=== PATIENT | female | born 1980 | race African-American/Black ===

== ENCOUNTER → 2017-10-13 | Day surgery (SDC) | payer OTHER ==
[~2017-10-13] MED LIST: GENTAMICIN SULFATE 80 MG/2 ML VIAL ONE; KETOROLAC TROMETHAMINE 30 MG/ML (IVP) VIAL IV PUSH ONE; LACTATED RINGER'S 1000 ML INJ 1,000 ML ONE; LIDOCAINE HCL 2% JELLY 5 ML SYRINGE ONE; MIDAZOLAM HCL 2 MG/2 ML VIAL ONE; MORPHINE SULFATE 2 MG/ML SYRINGE ONE; NS 100 ML (PAB BAG) 100 ML IV ONE; ONDANSETRON HCL 4 MG/2 ML VIAL IV PUSH ONE; PROPOFOL 200 MG/20 ML AMP IV ONE; SULF-154 PO; Z.0.NO CURRENT MEDS
--- NOTE | 2017-10-13 09:32 | TN ---
cc: Didier Sun MD DATE OF SURGERY: 10/13/2017 PREOPERATIVE DIAGNOSIS: Chronic cystitis (N30.20). POSTOPERATIVE DIAGNOSIS: Chronic cystitis (N30.20). PROCEDURE PERFORMED: 1. Cystourethroscopy with urethral dilation and hydrodistention (CPT code 12566). 2. Cystourethroscopy with bladder biopsy (CPT code 98870-89). 3. Cystourethroscopy with bladder washings for cytology (CPT code 70621-96). INDICATIONS FOR PROCEDURE: Ms. Mahmood is a 37-year-old woman with a history of dysuria and chronic cystitis for more than 6 months, who presents now for a possible diagnostic as well as therapeutic approaches to her symptoms. FINDINGS: Normal urethra. Bladder neck is open. The trigone shows ureteral orifice, normal size, shape and position, effluxing clear urine. The bladder itself was essentially unremarkable. There was a post-distention. There was no evidence of any glomerulations or Hunner's ulcers and the volume was approximately 750 mL. PROCEDURE: The procedure as well as risks and benefits were explained to the patient, informed consent was obtained. The patient was taken to the major operative theater where she was placed in the supine position. The patient was identified as well as the operative site. A universal timeout was performed in the standard fashion. At this time, general anesthetic and prophylactic intravenous antibiotics consisting of gentamicin 80 mg was administered. After adequate anesthetic, she was placed in the low dorsal lithotomy position, prepped and draped in the usual sterile fashion. At this time, a 22.5-Chilean obturator and sheath were placed into the bladder, the obturator removed and a 30 degree lens cystoscope was used. The bladder was systematically surveyed with the above findings. At this time, a urethral dilatation was performed from 12-Chilean to 28-Chilean without difficulty and then standard hydrodistention was performed first for a 2-minute period at a pressure of 80 cm of water. Then, the bladder was drained and the bladder was systematically surveyed again with no evidence of any abnormal findings. The bladder was then distended again, this time for a total of 8 minutes of hydrodistention and again drained. The bladder drained about 750 mL of water. The bladder was inspected. There was no perforation, no Hunner's ulcers or glomerulations of the bladder. In the posterior bladder wall a rigid biopsy forceps was used to take a home furnishings sales representative biopsy and Bugbee probe was used to cauterize the biopsy site. The biopsy was sent for final pathological evaluation. Prior to beginning the procedure please note that a bladder barbotage and bladder washings using normal saline was used at the beginning of the case. After the bladder was decompressed a Uro-Jet lidocaine jelly was then placed into the bladder. The patient emerged from anesthetic without difficulties, placed back in the supine position and transferred to the recovery room in stable condition to be discharged home when criteria is met. There were no obvious complications. MD FARIHA Mi/ANNAMARIE , 09:11 AM , 09:31 AM
== END | disposition home or self-care (01) ==
LOC: ESDC 05:59
PROVIDERS: ATTEND Urology
DX: N30.20 Other chronic cystitis without hematuria (principal)
CPT/HCPCS: 00910; 00912; 52240; 52260; 87086; 88305; J1580; J1885; J2250; J2270; J2405; J3010; J7120